=== PATIENT | male | born 1960 | race Caucasian/White ===

== ENCOUNTER 2017-12-09 09:54 | Inpatient (IN) ==
--- NOTE | 2017-12-08 15:40 | Discharge Summary ---
<Snow Martins - Last Filed: 12/08/17 15:37> Date of Encounter: 12/08/17 - Discharge Diagnosis (1) Arthritis of left hip Priority: Primary Status: Chronic (2) History of anesthesia complications Priority: Secondary Status: Chronic (3) Arrhythmia Priority: Secondary Status: Chronic Qualifiers: Arrhythmia type: unspecified cardiac arrhythmia Qualified Code(s): I49.9 - Cardiac arrhythmia, unspecified (4) Status post total hip replacement, left Priority: Primary Status: Acute - Hospital Course Hospital course: Mr. Mahajan is a 57 year old male - Time Spent with Patient Total time spent providing and/or coordinating discharge services: - Discharge Medications Home Medications: Aspirin Enteric Coated [Aspirin EC] 325 mg PO BID 10 Days #20 tab 12/08/17 [Rx] OxyCODONE Immed Rel [Roxicodone 5 MG] 5 mg PO Q6HR PRN 7 Days #28 tablet [Rx] Ibuprofen [Motrin] 600 - 1,200 mg PO DAILY PRN 12/09/17 [History] Allergies/Adverse Reactions: 3 Allergy/AdvReac Type Severity Reaction Status Date / Time cephalexin [From Keflex] AdvReac Nausea Verified 12/09/17 10:29 Primary care physician: Juan Diego Stoddard, - Patient Status Disposition: Home, Self-Care Condition: Good - Discharge Instructions Follow Up With: Juan Diego Stoddard DO [Primary Care Provider] - <Isaac Enrique - Last Filed: 12/10/17 06:41> Orders not resulted at time of discharge: Pending orders 12/09/17 01:00 XR hip complete LT [XR] Routine Hemoglobin and Hematocrit [HEME] Routine Date of Encounter: 12/10/17 Time of Encounter: 06:40 - Discharge Diagnosis (1) Status post total hip replacement, right Priority: Secondary Status: Chronic (2) Arrhythmia Priority: Secondary Status: Chronic Qualifiers: Arrhythmia type: unspecified cardiac arrhythmia Qualified Code(s): I49.9 - Cardiac arrhythmia, unspecified (3) Arthritis of left hip Priority: Primary Status: Chronic (4) History of anesthesia complications Priority: Secondary Status: Chronic (5) Status post total hip replacement, left Priority: Primary Status: Acute - Hospital Course Hospital course: Mr. Mahajan is a 57 year old male Status post total hip replacement The patient had an uneventful postoperative course. They received antibiotics and physical therapy and were discharged in stable condition. There will follow -up in the office in 2 weeks. - Time Spent with Patient Total time spent providing and/or coordinating discharge services: Primary care physician: Juan Diego Stoddard, - Patient Status Functional capacity at discharge: uses cane/walker Overall status at discharge: patient is progressing back to baseline
[2017-12-09] MEDS ORDERED: Clindamycin 900 MG/50 ML 900 MG/50 ML IV.SOLN IVPB ONE (10:06)
[2017-12-09] MEDS ORDERED: *HR* FentaNYL (PF) 100 MCG/2 ML VIAL ONE (10:13)
[2017-12-09] MEDS ORDERED: *HR* Propofol 200 MG/20 ML VIAL IVP ONE ×2 (10:13→12:48)
[2017-12-09] MEDS ORDERED: Lidocaine -MPF 2% 2 ML VIAL ONE (10:13)
[2017-12-09] MEDS ORDERED: *HR* Midazolam HCl 2 MG/2 ML VIAL ONE (10:13)
[2017-12-09] MEDS ORDERED: Propofol 500 MG/50 ML INFUS..BTL ONE (10:13)
[2017-12-09] MEDS ORDERED: Ketorolac 30 MG/ML VIAL ONE (10:14)
[2017-12-09] MEDS ORDERED: Ringers Solution, Lactated 1,000 ML IVC SCH (10:15)
--- NOTE | 2017-12-09 10:39 | Anesthesia Evaluation PreOp ---
Date of Encounter: 12/09/17 Time of Encounter: 10:37 - Past History Planned Operation: Left total hip arthoplasty, robotic Cardiac History: Denies any Significant Hx Pulmonary History: Denies Any Significant HX EMAIL MARKETING EXECUTIVE History: Denies Any Significant HX Other Medical History: Denies Any Significant HX Anesthesia History: Past Anesthesia (right ankle, left knee, frozen shoulder right, right total hip replacement), Problems (very slow to emerge) Alcohol Use: none Drug use: none Medications and Allergies Aspirin Enteric Coated [Aspirin EC] 325 mg PO BID 10 Days #20 tab 12/08/17 [Rx] OxyCODONE Immed Rel [Roxicodone 5 MG] 5 mg PO Q6HR PRN 7 Days #28 tablet [Rx] Ibuprofen [Motrin] 600 - 1,200 mg PO DAILY PRN 12/09/17 [History] 3 Allergy/AdvReac Type Severity Reaction Status Date / Time cephalexin [From Keflex] AdvReac Nausea Verified 12/09/17 10:29 - Meds/Allergy Pre-op Review Medications Reviewed: Yes Allergies Reviewed: Yes Beta Blockers on Current Med List: No Anesthesia Results - Labs Laboratory Tests 11/27/17 11/27/17 11/27/17 08:05 08:05 08:05 WBC 7.4 Hgb 15.9 Hct 47.5 Plt Count 249 PT 11.2 INR 1.0 APTT 32.0 Sodium 139 Potassium 4.0 Chloride 104 Carbon Dioxide 27 BUN 29 H Creatinine 1.28 Est GFR ( Amer) > 60 Est GFR (Non-Af Amer) 58 L BUN/Creatinine Ratio 23 - Imaging EKG: report reviewed, image reviewed (SR) Anesthesia Exam Last Vital Signs Temp 97.8 F 12/09/17 10:09 Pulse 93 12/09/17 10:09 Resp 18 12/09/17 10:09 BP 127/89 12/09/17 10:09 Pulse Ox 97 12/09/17 10:09 Height: 6' 8" Weight: 109 kg - HEENT Pupil (Motor): Pupils equal, EOMI Mallampati: II Teeth: Normal Oral Opening: Greater than 3 - EMAIL MARKETING EXECUTIVE LOC: Oriented - Cardiac Rhythm: Regular Murmur: None - Pulmonary Breath Sounds: bilateral Clear Respiratory Effort: Symmetrical Anesthesia Assess/Plan ASA Score: 1 Modified [place] Scale for Level of Consciousness: Cooperative, oriented, and tranquil Anesthetic Plan: Regional (Spinal), MAC Monitoring Plan: Standard Monitors Recovery Plan: PACU
--- NOTE | 2017-12-09 10:48 | History & Physical Report ---
Date of Encounter: 12/09/17 Time of Encounter: 10:47 24 Hour HP Update - Instructions Instructions: If the History and Physical is less than 30 days old and was completed prior to A.M. admission and or procedure and has NOT been updated on calendar day of procedure please complete this update prior to performing procedure. - Update Patient reports changes in Medical Condition: No Changes in examination, assessment, or condition: No Changes in Medication: No Preop tests/diagnostics Reviewed: Yes Surgery Remains Indicated: Yes Consent for Planned Operative Procedure(s) Verified: Yes - Pre-Operative Checklist Preoperative Checklist Indicated: No Prophylactic Antibiotic Ordered: Yes Is VTE Prophylaxis Indicated?: Yes
[2017-12-09] MEDS ORDERED: *HR* Morphine Sulfate/PF 10 MG/10 ML AMPUL ONE (11:23)
[2017-12-09] MEDS ORDERED: Bupivacaine-MPF 0.25% 10 ML VIAL ONE (11:23)
[2017-12-09] MEDS ORDERED: Ethanol\\Acetic Acid\\Na Ace\\Ben 1,000 ML IRRIG.SOLN IR ONE (11:24)
[2017-12-09] MEDS ORDERED: *HR* PHENYLEPHRINE 1,000 MCG/10 ML SYRINGE IVP ONE ×2 (11:57→13:08)
[2017-12-09] MEDS ORDERED: *HR* Promethazine 25 MG/ML VIAL IVP PRN (12:17)
[2017-12-09] MEDS ORDERED: Ondansetron 4 MG/2 ML VIAL IVP PRN ×2 (12:21→14:11)
[2017-12-09] MEDS ORDERED: *HR* OxyCODONE/APAP 5/325 TABLET PO PRN ×2 (12:21→14:11)
--- NOTE | 2017-12-09 12:40 | Anesthesia Procedures ---
Date of Encounter: 12/09/17 Time of Encounter: 11:30 Procedures: Anesthesia - Epidural/Spinal Patient ID/Chart reviewed: Yes Patient examined: Yes Consent Obtained: Yes Supplemental Oxygen: Nasal Cannula Supplemental Oxygen Rate (L/min): 2 Sedation: Versed (mg): 2 Sedation: Fentanyl (mcg): 100 Site Prep: Aseptic Technique, Sterile prep and drape, Povidone-Iodine 1% Patient position: upright Local Anesthetic: Lidocaine 1% Interspace Used: L4-L5 Blood: No CSF: Yes (duramorph spinal ) Paresthesia: No Spinal Needle Gauge: 24 (24g pencan 3 1/3) Spinal Dose: see procedure note Procedure: PIV PATENT, FLUID BOLUS GIVEN, MONITORS ON, 2LNC, PATIENT SITTING UPRIGHT, STERILE PREP AND DRAPE WITH BETADINE, LIDOCAINE 1% FOR LOCAL. PENCAN 3 1/2 TO L4 /L5 VIA INTRODUCER/SPINAL NEEDLE. +CSF, -HEME,-PARATHESIA. DOSED AT 1135. MEDS GIVEN: BUPIVICAINE 0.25% 2.5ML +200MCG DURAMORPH. SENSORY LEVEL CONFIRMED AT T10. VSS, PATIENT TOLERATING WELL. Vitals + FHT's: Vital Signs - Last 8 Hours Temp Pulse Resp BP Pulse Ox 12/09/17 11:47 80 16 129/85 98 12/09/17 11:33 90 20 128/86 98 12/09/17 10:09 97.8 F 93 18 127/89 97 Intake and Output 12/08/17 12/09/17 12/09/17 23:59 07:59 15:59 Intake Total 50 / 50 Balance 50 / 50 Intake: IV Fluids 50 / 50 Cleocin Premix 900 MG/50 ML 900 50 / 50 mg In 50 ml @ 100 mls/hr IVPB PREOP ONE Rx#:[id number] Other: Weight 108.862 kg Patient Weight 12/09/17 23:59 Weight 108.862 kg
--- NOTE | 2017-12-09 12:59 | Orthopedic Operative Note ---
Date of procedure: 12/09/17 Pre-op diagnosis: Left hip arthritis Post-op diagnosis: same Procedure: Procedure: Left Total Hip Replacment robotic-assisted Estimated blood loss: 300 cc Hardware: Metal and polyethylene replacement. Jayesh DM Cup: 66 cup Femoral size 11 stem Head:4 head with Nyasia Procedural Notes: Grade 4 arthritic changes femoral head acetabular socket, procedure performed with robotic assistance. The operative leg 1 cm shorter than the nonoperative leg is measured by CT scan. Operative procedure: The patient was brought to the operating room and placed on the operating room table. After general anesthesia was administered the patient was placed in the lateral decubitus position with the operative leg up. All pressure points were padded appropriately and the head was stabilized in the neutral position. The operative extremity was prepped and draped in the sterile surgical fashion patient received IV antibiotic prior to skin incision. 3 Steinmann pins were placed in the iliac crest 3 cm proximal to the anterior superior iliac spine this was for the robotic-assisted sensor. This was done through a small 2 cm incision. A standard posterior approach is made to the operative hip, the incision was made through the skin and subcutaneous tissue hemostasis was obtained with Bovie cautery. Using careful sharp dissection the fascia was identified and incised exposing the external rotators. The femoral checkpoint was placed leg length was measured at this time utilizing robotic assistance. The external rotators were released off the greater trochanter and tagged with # 2 FiberWire suture. The capsule was T'd open and the hip was brought into internal rotation. Patient noted to have grade 4 arthritic changes femoral head. The femoral neck cut was made at the appropriate level roughly 20 mm proximal to the lesser trochanter aced on preoperative templating. An anterior capsulotomy was performed for the anterior retractor. Soft tissues removed from the acetabulum. Patient noted to have grade 4 arthritic changes acetabulum. The acetabulum checkpoint was placed confirmed. The acetabulum was then mapped with robotic assistance. Based on the preoperative plan the acetabulum was reamed in one step with a 65 reamer. The 66 acetabulum was impacted with robotic assistance and 40 degrees of abduction and 20 degrees of anteversion. The hip was brought back in to internal rotation and prepared with the boxcar weigher followed by the canal finder followed by the reaming process to a size 11 /12 broaching process in 20 degrees anteversion. It was broached up to the appropriate size 11. Trial reduction revealed leg lengths close to normal. The femoral implant was impacted in place in 20 degrees of anteversion. Trial reduction found the hip to be stable with 8 head and Nyasia. The trials were removed and the real implants were impacted in place. The hip was reduced, patient had robotic confirmed leg length of 5 mm longer than the contralateral side. The hip had excellent stability with forward flexion to 90 degrees adduction of 30 degrees and internal rotation of 60 degrees. The hip had no shuck. The hips after 2 minutes with a antibacterial solution. It was irrigated out with 2 L of pulse irrigation. The checkpoints were removed, Steinmann pins were removed. The hip was closed by the PA. The deep tissue was irrigated and closed deep with #1 PDS suture superficially with 0 PDS suture and skin was closed with Dermabond and zip tie. The patient was placed in a sterile dressing and abduction pillow. The patient was extubated and transferred to the recovery room in stable condition. Anesthesia: spinal Surgeon: Isaac Enrique Was there an grooming assistant present: Yes Assistant Professor Of German: Edie Boogie Estimated blood loss (cc): 300 Condition: stable Disposition: PACU
--- NOTE | 2017-12-09 13:45 | Anesthesia Evaluation Post Op ---
Date of Encounter: 12/09/17 Time of Encounter: 13:44 - Vital Signs Vital Signs: Vital Signs - Last 8 Hours Temp Pulse Resp BP Pulse Ox 12/09/17 13:38 82 17 101/69 93 12/09/17 13:28 97.4 F L 82 18 98/65 95 12/09/17 11:47 80 16 129/85 98 12/09/17 11:33 90 20 128/86 98 12/09/17 10:09 97.8 F 93 18 127/89 97 Intake and Output 12/08/17 12/09/17 12/09/17 23:59 07:59 15:59 Intake Total 50 / 50 Output Total 300 / 300 Balance -250 / -250 Intake: IV Fluids 50 / 50 Cleocin Premix 900 MG/50 ML 900 50 / 50 mg In 50 ml @ 100 mls/hr IVPB PREOP ONE Rx#:[id number] Output: Estimated Blood Loss 300 / 300 Other: Weight 108.862 kg Patient Weight 12/09/17 23:59 Weight 108.862 kg - Lungs Lungs: Clear Ascult./Percussion - Airway Airway: Non-obstructed - Cardiovascular Regular Rate, Baseline Rhythm - Mental Status Mental Status: Alert & Oriented, Answers Appropriately - Pain Pain Scale: 0 Pain Scale used: Numeric (1 - 10) - Nausea Vomiting Nausea Vomiting: Not Present - Hydration Hydration: Tolerates oral liquids - Discharge PostOp Status: Transfer Patient to floor
[2017-12-09] MEDS ORDERED: Temazepam 15 MG CAPSULE PO PRN (14:11)
[2017-12-09] MEDS ORDERED: *HR* OxyCODONE Immed Rel 5 MG TABLET PO PRN (14:11)
[2017-12-09] MEDS ORDERED: Sennosides 8.6 MG TABLET PO PRN (14:11)
[2017-12-09] MEDS ORDERED: MOM Conc 10 ML UD.LIQ PO PRN (14:11)
[2017-12-09] MEDS ORDERED: Naloxone 0.4 MG/ML INJ IVP PRN (14:11)
[2017-12-09 14:16] LABS: Hematocrit 45.6 % (37.5-50.1); Hemoglobin 14.8 g/dL (12.9-16.9)
[2017-12-09] MEDS: Ringers Solution, Lactated 1,000 ML IVC SCH (15:08)
[2017-12-09] MEDS: Clindamycin 900 MG/50 ML 900 MG/50 ML IV.SOLN IVPB SCH (17:55)
[2017-12-09] MEDS: Ascorbic Acid 500 MG TABLET PO SCH (17:56)
[2017-12-09] MEDS: *HR* Enoxaparin 30 MG/0.3 ML SYRINGE SQ SCH (17:56)
[2017-12-09] MEDS ORDERED: *HR* Enoxaparin 30 MG/0.3 ML SYRINGE SQ SCH (18:00)
[2017-12-10] MEDS: Clindamycin 900 MG/50 ML 900 MG/50 ML IV.SOLN IVPB SCH (01:33)
[2017-12-10] MEDS: traMADol 50 MG TABLET PO PRN ×2 (02:25→09:35)
[2017-12-10 06:06] LABS: Hemoglobin 13.3 g/dL (12.9-16.9)
[2017-12-10] MEDS: Ringers Solution, Lactated 1,000 ML IVC SCH (06:11)
[2017-12-10] MEDS: *HR* Enoxaparin 30 MG/0.3 ML SYRINGE SQ SCH ×2 (06:12→16:49)
[2017-12-10] MEDS: *HR* OxyCODONE/APAP 5/325 TABLET PO PRN (06:12)
[2017-12-10 06:26] LABS: BUN/Creatinine Ratio 18 (6-26); Blood Urea Nitrogen 21 mg/dL (6-20); Calcium 8.7 mg/dL (8.6-10.3); Carbon Dioxide 27 mEq/L (23-29); Chloride 103 mEq/L (98-107); Glucose 140 mg/dL (70-105); Osmolality,Calculated 289 (280-300); Potassium 3.9 mEq/L (3.5-5.1); Sodium 137 mEq/L (136-145); eGFR For African Americans > 60 (> 60); eGFR For Non-African Americans > 60 (> 60)
--- NOTE | 2017-12-10 06:41 | Orthopedics Progress Note ---
Date of Encounter: 12/10/17 Time of Encounter: 06:41 - Assessment and Plan (1) Status post total hip replacement, right Current Visit: Yes Status: Chronic (2) Arrhythmia Current Visit: No Status: Chronic Qualifiers: Arrhythmia type: unspecified cardiac arrhythmia Qualified Code(s): I49.9 - Cardiac arrhythmia, unspecified (3) Arthritis of left hip Current Visit: No Status: Chronic (4) History of anesthesia complications Current Visit: No Status: Chronic (5) Status post total hip replacement, left Current Visit: No Status: Acute Subjective Interval history: Patient was seen this morning doing well without complaints. Afebrile vital signs stable. Operative extremity: Neurovascularly intact Dressing clean dry and intact Calves nontender Assessment and plan: Continue with postoperative care Discharge today Objective Vital signs: Vital Signs Temp Pulse Resp BP Pulse Ox 12/10/17 05:14 98.7 F 90 17 122/75 96 12/10/17 00:43 99.3 F 86 15 132/74 95 12/09/17 20:13 99.2 F 81 18 118/75 97 12/09/17 15:15 97.6 F 65 16 98/65 98 12/09/17 14:25 97.5 F L 65 14 101/59 96 12/09/17 14:16 94 12/09/17 13:58 98.2 F 77 13 110/72 94 12/09/17 13:48 79 14 105/66 93 12/09/17 13:38 82 17 101/69 93 12/09/17 13:28 97.4 F L 82 18 98/65 95 12/09/17 11:47 80 16 129/85 98 12/09/17 11:33 90 20 128/86 98 12/09/17 10:09 97.8 F 93 18 127/89 97 Intake and Output 12/09/17 12/09/17 12/10/17 15:59 23:59 07:59 Intake Total 50 / 50 50 / 50 1000 / 1000 Output Total 300 / 300 Balance -250 / -250 50 / 50 1000 / 1000 Intake: IV Fluids 50 / 50 50 / 50 1000 / 1000 Lactated Ringers 1,000 ML @ 75 1000 / 1000 mls/hr IVC .[id number] [facility] Rx#: [id number] Cleocin Premix 900 MG/50 ML 900 50 / 50 50 / 50 mg In 50 ml @ 50 mls/hr IVPB Q8HR [facility] Rx#:[id number] Output: Estimated Blood Loss 300 / 300 Other: Meal Dinner Percent of Meal Consumed 30% Weight 108.862 kg - Labs CBC & BMP: 12/10/17 05:28 12/10/17 05:28 Labs: Abnormal lab results BUN 21 mg/dL (6-20) H 12/10/17 05:28 Glucose 140 mg/dL (70-105) H 12/10/17 05:28 - VTE Documentation of Mechanical Device: Venous foot pump, device Consult Discharge Plan - Plan Referrals: Juan Diego Stoddard DO [Primary Care Provider] -
[2017-12-10] MEDS: Multivit/Ca/Min/Fe/FA 1 TAB TABLET PO SCH (07:45)
[2017-12-10] MEDS: Ascorbic Acid 500 MG TABLET PO SCH ×2 (07:46→16:49)
--- NOTE | 2017-12-10 17:27 | Event Note ---
Date of Encounter: 12/10/17 Time of Encounter: 12:30 PCR- POD#1 L THR robotic 12/09/17 Klaus PCR - Patient seen at bedside. Labwork and medications reviewed. Pain control: Patient c/o spasms to left thigh and pain around incision. States pain is shooting down the leg. He states his left knee is painful - states this has been painful prior to surgery, continues to have pain now. Participating in PT. All questions and concerns addressed. Educated on use of incentive spirometer, ambulation, and hydration. Patient educated on post-operative restrictions and care. Addressed: nausea/dizziness - patient had vasovagal type episode while participating in therapy earlier today. Will add phenergan, lidoderm, flexeril, and ibuprofen to regimen to help control pain. Educated to ask for an apply ice frequently to help with pain /swelling. D/C plan: Home with HH likely tomorrow.
--- NOTE | 2017-12-10 17:29 | Physician Discharge Referral ---
Home Health/Hosp Referral Info Transfer to: Home Health Attending Provider: Dr Enrique - Diagnosis (1) Arthritis of left hip Priority: Primary Status: Chronic (2) History of anesthesia complications Priority: Secondary Status: Chronic (3) Arrhythmia Priority: Secondary Status: Chronic (4) Status post total hip replacement, left Priority: Primary Status: Acute - Respiratory Orders Smoking Cessation: Smoking cessation has been advised. For more information, call the [employer] Tobacco Quit Line at 7-055-QKZQ-NOW. - Dressing/Wound Care Site: left hip Type of Dressing/Treatments w/Frequency: Opsite placed. Keep dressing intact until first follow up appointment. If > 50% saturated, notify office, remove dressing and place appropriate dressing back in place. Leave Zipline intact. Opsite dressing is water resistant, not water- proof. OK to shower, but do not get dressing wet. - Diet/Nutrition Diet/Nutrition Orders: Regular - Activity Activity Orders: Up ad tiffanie, Ambulate, Chair, Walker - Services Needed Following services are medically necessary services: Nursing, Home Health Aide, Physical Therapy, Occupational Therapy Home Care Orders: Total Hip replacement Precautions Apply cold therapy 3-6x/day for 20 minutes at a time. Encourage ambulation throughout the day and incentive spirometer 10x/hour. Elevate affected extremity as tolerated. Brace: Wear hip abduction pillow when laying/sleeping - Transfer Medications Home Medications: Aspirin Enteric Coated [Aspirin EC] 325 mg PO BID 10 Days #20 tab 12/08/17 [Rx] OxyCODONE Immed Rel [Roxicodone 5 MG] 5 mg PO Q6HR PRN 7 Days #28 tablet [Rx] Ibuprofen [Motrin] 600 - 1,200 mg PO DAILY PRN 12/09/17 [History] Allergies/Adverse Reactions: 3 Allergy/AdvReac Type Severity Reaction Status Date / Time cephalexin [From Keflex] AdvReac Nausea Verified 12/09/17 10:29 Certification: Further, I certify that my clinical findings support that this patient is homebound (i.e. absences from home require considerable and taxing effort and are for medical reasons or [employer] services or infrequently or short duration when for other reasons) because: Homebound Reason: Post-surgery restriction and or conditions limit ability to leave home Attestation: My signature below is to certify that this patient is under my care and that I, or nurse practitioner, or a physician assistant case manager working with me, has a face-to- face encounter with this patient.
[2017-12-10] MEDS ORDERED: Ibuprofen 600 MG TABLET PO PRN (17:32)
[2017-12-10] MEDS ORDERED: tiZANidine 4 MG TABLET PO PRN (17:33)
[2017-12-11] MEDS: Ringers Solution, Lactated 1,000 ML IVC SCH ×2 (00:02→09:03)
[2017-12-11] MEDS: *HR* OxyCODONE/APAP 5/325 TABLET PO PRN ×3 (01:49→13:32)
[2017-12-11] MEDS: *HR* Enoxaparin 30 MG/0.3 ML SYRINGE SQ SCH (05:08)
[2017-12-11 06:27] LABS: Hematocrit 33.3 % (37.5-50.1)
[2017-12-11 06:29] LABS: Hemoglobin 11.4 g/dL (12.9-16.9)
[2017-12-11 06:33] VITALS: BP 99/64
[2017-12-11 06:45] LABS: BUN/Creatinine Ratio 15 (6-26); Blood Urea Nitrogen 16 mg/dL (6-20); Calcium 8.9 mg/dL (8.6-10.3); Carbon Dioxide 27 mEq/L (23-29); Chloride 102 mEq/L (98-107); Glucose 140 mg/dL (70-105); Osmolality,Calculated 281 (280-300); Potassium 3.7 mEq/L (3.5-5.1); Sodium 134 mEq/L (136-145); eGFR For African Americans > 60 (> 60); eGFR For Non-African Americans > 60 (> 60)
[2017-12-11] MEDS: Ascorbic Acid 500 MG TABLET PO SCH (09:04)
[2017-12-11] MEDS: Multivit/Ca/Min/Fe/FA 1 TAB TABLET PO SCH (09:04)
--- NOTE | 2017-12-11 09:05 | Orthopedics Progress Note ---
Date of Encounter: 12/11/17 Time of Encounter: 09:04 - Assessment and Plan (1) Status post total hip replacement, right Current Visit: Yes Status: Chronic (2) Arrhythmia Current Visit: No Status: Chronic Qualifiers: Arrhythmia type: unspecified cardiac arrhythmia Qualified Code(s): I49.9 - Cardiac arrhythmia, unspecified (3) Arthritis of left hip Current Visit: No Status: Chronic (4) History of anesthesia complications Current Visit: No Status: Chronic (5) Status post total hip replacement, left Current Visit: No Status: Acute Subjective Interval history: Patient was seen this morning doing discharge held secondary to pain control Afebrile vital signs stable. Operative extremity: Neurovascularly intact Dressing clean dry and intact Calves nontender Assessment and plan: Continue with postoperative care Discharge today if pain better controlled Objective Vital signs: Vital Signs Temp Pulse Resp BP Pulse Ox 12/11/17 06:30 97.4 F L 67 18 99/64 93 12/11/17 00:31 97.8 F 94 16 133/82 94 12/10/17 19:24 97.4 F L 92 16 147/84 95 12/10/17 16:27 97.4 F L 89 17 138/81 95 12/10/17 11:31 99.3 F 90 15 129/76 94 Intake and Output 12/10/17 12/11/17 12/11/17 23:59 07:59 15:59 Intake Total 1000 / 1000 400 / 400 Output Total 300 / 300 Balance 1000 / 1000 100 / 100 Intake: IV Fluids 1000 / 1000 Lactated Ringers 1,000 ML @ 75 1000 / 1000 mls/hr IVC .[id number] [facility] Rx#: [id number] Oral 0 / 0 400 / 400 Output: Urine 300 / 300 Other: Meal Dinner Percent of Meal Consumed 0% - Labs CBC & BMP: 12/11/17 05:42 12/11/17 05:42 Labs: Abnormal lab results Hgb 11.4 g/dL (12.9-16.9) L D 12/11/17 05:42 Hct 33.3 % (37.5-50.1) L 12/11/17 05:42 Sodium 134 mEq/L (136-145) L 12/11/17 05:42 Glucose 140 mg/dL (70-105) H 12/11/17 05:42 - VTE Documentation of Mechanical Device: Intermittent pneumatic compression device Consult Discharge Plan - Plan Referrals: Juan Diego Stoddard DO [Primary Care Provider] -
--- NOTE | 2017-12-11 17:45 | Event Note ---
Date of Encounter: 12/11/17 Time of Encounter: 11:35 PCR- POD#2 L THR robotic 12/09/17 Klaus PCR - Patient seen at bedside. Spouse at bedside. Labwork and medications reviewed. Pain control: Patient c/o spasms to left thigh and pain around incision. States pain is shooting down the leg. He states his left knee is painful - states this has been painful prior to surgery, continues to have pain now. States these complaints are improved with altered medication regimen. Requesting discharge scripts for these medications. Participating in PT. All questions and concerns addressed. Educated on use of incentive spirometer, ambulation, and hydration. Patient educated on post-operative restrictions and care. Addressed: nausea/dizziness- improved with Phenergan - patient eating lunch. Will send phenergan, lidoderm, tizanidine, and ibuprofen to pharmacy of choice for discharge. Educated to ask for an apply ice frequently to help with pain / swelling. D/C plan: Home with HH today.
== END 2017-12-11 15:09 | disposition home or self-care (01) | DRG 470 ==
LOC: SAMDAY 09:54 → 3NENU 14:00
PROVIDERS: ADMIT Orthopaedic Surgery; ATTEND Orthopaedic Surgery